=== PATIENT | male | born 1955 | race Caucasian/White ===

== ENCOUNTER 2023-01-05 12:13 | Day surgery (SDC) | payer MEDICARE, OTHER ==
[~2023-01-05] VITALS: Ht 175.3 cm; Wt 114.2 kg
[2023-01-05] VITALS (9 sets, daily range): BP systolic 127–142; BP diastolic 77–87
[2023-01-05] MEDS ORDERED: LORazepam 0.5 MG tablet PO PRN (12:30)
[2023-01-05] MEDS ORDERED: diphenhydrAMINE 25mg capsule PO PRN (12:30)
[2023-01-05] MEDS ORDERED: normal saline 1,000 ML IV SCH (12:30)
[2023-01-05] MEDS ORDERED: ROSU10TA28 PO (12:51)
[2023-01-05] MEDS ORDERED: LISI20TA28 PO (12:51)
[2023-01-05] MEDS ORDERED: ASPI81TA52 PO (12:51)
[2023-01-05] MEDS ORDERED: CETI10TA15 PO (12:51)
[2023-01-05] MEDS ORDERED: ESCI-8 PO (12:51)
[2023-01-05] MEDS ORDERED: MONT-40 PO (12:51)
[2023-01-05] MEDS ORDERED: CHOL20002 PO (12:52)
[2023-01-05] MEDS ORDERED: MULT-1085 PO (12:52)
[2023-01-05] MEDS ORDERED: BUDE10.7 (12:54)
[2023-01-05] MEDS ORDERED: ALB0.5UD (12:54)
[2023-01-05] MEDS ORDERED: LIDOcaine 1% (10mg/ml) 2ml vial ONE (14:04)
[2023-01-05] MEDS ORDERED: midazolam 1 mg/ML 2ml injection ONE (14:04)
[2023-01-05] MEDS ORDERED: verapamil 2.5 mg/ml inj IV ONE (14:04)
[2023-01-05] MEDS ORDERED: fentaNYL/PF 50MCG/1 ML 2ML syringe ONE (14:04)
[2023-01-05] MEDS ORDERED: nitroGLYCERIN-Tridil 50MG/D5W 250 ML IV ONE (14:05)
[2023-01-05] MEDS ORDERED: heparin 1,000unit/ml 10ml vial 10 ML ONE ×2 (14:05→14:54)
[2023-01-05] MEDS ORDERED: iohexol 350MG/ML 100ml bottle IV ONE ×2 (14:05→14:56)
[2023-01-05] MEDS ORDERED: aspirin 325mg tablet ONE (14:54)
[2023-01-05] MEDS ORDERED: clopidogrel 300mg tablet ONE (14:54)
[2023-01-05] MEDS ORDERED: HYDROcodone/acetaminophen 10/325mg tab PO PRN (16:10)
[2023-01-05] MEDS ORDERED: HYDROcodone/acetaminophen 5mg/325mg tablet PO PRN (16:10)
== END 2023-01-05 18:30 | disposition home or self-care (01) ==
LOC: SSTAY O 12:13
PROVIDERS: ATTEND Student in an Organized Health Care Education/Training Program
DX: R06.02 Shortness of breath (principal); R07.2 Precordial pain; I25.10 Atherosclerotic heart disease of native coronary artery without angina pectoris; I10 Essential (primary) hypertension; E78.5 Hyperlipidemia, unspecified; J45.909 Unspecified asthma, uncomplicated; Z79.899 Other long term (current) drug therapy
CPT/HCPCS: 93005; 93458; 99152; 99153; A6258; C1725; C1751; C1769; C1874; C1894; C9600; J1644; J2250; J3010; J3490; J7030; Q0163; Q9967; A6402

== ENCOUNTER 2023-02-20 13:09 | Day surgery (SDC) | payer MEDICARE, OTHER ==
[2023-02-20] VITALS (12 sets, daily range): BP systolic 97–131; BP diastolic 55–80
[~2023-02-20] VITALS: Ht 175.3 cm; Wt 112.1 kg
[~2023-02-20 13:09] MED LIST: ALB0.5UD; ASPI81TA52 PO; BUDE10.7; CETI10TA15 PO; CHOL20002 PO; ESCI-8 PO; LISI20TA28 PO; MONT-40 PO; MULT-1085 PO; ROSU10TA28 PO
[2023-02-20] MEDS ORDERED: diphenhydrAMINE 25mg capsule PO PRN (13:25)
[2023-02-20] MEDS ORDERED: normal saline 1,000 ML IV SCH (13:25)
[2023-02-20] MEDS ORDERED: LORazepam 0.5 MG tablet PO PRN (13:25)
[2023-02-20] MEDS ORDERED: verapamil 2.5 mg/ml inj IV ONE (14:20)
[2023-02-20] MEDS ORDERED: nitroGLYCERIN-Tridil 50MG/D5W 250 ML IV ONE (14:20)
[2023-02-20] MEDS ORDERED: LIDOcaine 1% (10mg/ml) 2ml vial ONE (14:20)
[2023-02-20] MEDS ORDERED: fentaNYL/PF 50MCG/1 ML 2ML syringe ONE (14:20)
[2023-02-20] MEDS ORDERED: midazolam 1 mg/ML 2ml injection ONE ×2 (14:20→15:49)
[2023-02-20] MEDS ORDERED: heparin 1,000unit/ml 10ml vial 10 ML ONE (14:21)
[2023-02-20] MEDS ORDERED: iohexol 350MG/ML 100ml bottle IV ONE (14:21)
[2023-02-20] MEDS ORDERED: ROSU40TA22 PO (14:24)
[2023-02-20] MEDS ORDERED: CLOP75TA34 PO (14:24)
[2023-02-20] MEDS ORDERED: proCHLORperazine 10 MG/2 ml inj ONE (15:16)
[2023-02-20] MEDS ORDERED: clopidogrel 300mg tablet ONE (15:59)
[2023-02-20] MEDS ORDERED: aspirin 81mg tab.chew ONE ×2 (15:59→16:01)
--- NOTE | 2023-02-20 16:34 | NUR ---
Received pt back from [employer], report from Quirino NIETO. Prior to Quirino leaving pt room, pt developing hematoma. Quirino re-applied TR-band and instilled 22ml air. Will monitor closely for further bleeding or hematoma formation.
--- NOTE | 2023-02-20 17:30 | NUR ---
2ml air released from TR band, no bleeding or hematoma formation noted.
== END 2023-02-20 19:30 | disposition home or self-care (01) ==
LOC: SSTAY O 13:09
PROVIDERS: ATTEND Student in an Organized Health Care Education/Training Program
DX: I25.118 Atherosclerotic heart disease of native coronary artery with other forms of angina pectoris (principal); J45.909 Unspecified asthma, uncomplicated; I10 Essential (primary) hypertension; E78.5 Hyperlipidemia, unspecified; Z95.5 Presence of coronary angioplasty implant and graft; Z79.899 Other long term (current) drug therapy; Z79.82 Long term (current) use of aspirin; Z79.01 Long term (current) use of anticoagulants
CPT/HCPCS: 93005; 99152; 99153; C1725; C1751; C1769; C1874; C9600; J0780; J1644; J2250; J3010; J3490; J7030; Q0163; Q9967; A6258; A6402; C1894